=== PATIENT | female | born 1965 | race Caucasian/White ===

== ENCOUNTER 2019-09-13 17:00 | Outpatient (RCR) | payer BC, SELFPAY ==
--- NOTE | 2019-09-16 14:44 | OTOPEVAL ---
Thank you for referring this patient to [facility]. Please review, sign, date and return this plan of care KARI. I agree with and certify that the following plan of care is medically necessary. Referring Physician Date Admitting Provider: Attending Provider: Larry Odonnell MD Referring Provider: *OT Outpatient Evaluation Start: 09/13/19 16:43 Freq: Status: Active Protocol: Document 09/13/19 17:06 [facility] (Rec: 09/13/19 18:06 [facility] [id number]) Therapy Assessment Status Assessment Status Assessment Status Evaluation Outpatient Past Medical History Respiratory History Hx Bronchitis Yes Evaluation Information Problem Diagnosis R thumb pain Onset 07/13/20 Cause R trigger thumb Subjective Information Patient reports that symptoms Query Text:As Reported By Patient/ began ~ 2 months ago and Family started in her R arm. She reports pain, stiffness, swelling, and tingling in her R hand, initiating in all fingers but now pain is primarily is her R thumb. Patient reports that she is unable to open containers, including flipping and twisting open. 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 Patient reports that it is painful to write. Diagnostic Tests X-Rays For This Problem Yes Prior Level of Function Activity Level (Last 3 Months) Hand Dominance Right Activity of Daily Living Ability Independent Indoor/Home Mobility Independent Community Mobility Independent Stairs Ability Independent Functional Cognition (Planning, Shopping Independent , Taking Medications) Cooking Yes Cleaning Yes Laundry Yes Shopping Yes Driving Yes Medications Home Meds (Include: OTC, RX, Vitamins, vitamins Herbals, Dose, Route,and Frequency) Query Text:Home Med Entries Will No Longer Recall From Past Visits. Home Meds Must Be Re-entered With Each Visit. Home Setting Home Type House Living Situation With Minor Child,With Spouse Mobility Assistive Devices (Used Last 3 None Months) Pain Assessment
--- NOTE | 2019-12-10 07:59 | PCOTNOTE ---
Patient is seen for 6 OT sessions and is discharged from skilled OT services as patient does not wish to resume services. Patient reports that she is going back to the . [place]
== END 2019-10-03 11:30 | disposition home or self-care (01) ==
LOC: CHSOT 17:00
PROVIDERS: Visit Provider Orthopaedic Surgery
DX: M65.311 Trigger thumb, right thumb (principal)
CPT/HCPCS: 97035; 97110; 97140; 97165

== ENCOUNTER → 2023-08-04 12:45 | Outpatient (CLI) | payer BC, SELFPAY ==
--- NOTE | ~2023-08-04 | XR_ITS ---
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 TECHNIQUE: AP, lateral, lateral swimmers and odontoid views of the cervical spine are provided. COMPARISON: None FINDINGS: 2 mm anterolisthesis C2 on C3 and C3 on C4, 3 mm anterolisthesis C4 on C5. Mild kyphosis at C4-C5. Od ontoid is intact. Moderate atlantoaxial osteoarthritis. Vertebral body heights are normal. Severe dis c height loss with moderate to severe uncovertebral osteoarthritis and small posterior endplate osteo phytes resulting in mild central canal stenosis at C5-C6 and C6-C7. Mild disc height loss at C4-C5. T here is severe facet osteoarthritis at C2-C3 through C4-C5. Visualized apices of lungs are clear. Pr evertebral soft tissues are normal. IMPRESSION: 1. Severe cervical spondylosis. Reviewed, dictated and finalized at location A. 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
== END ==
PROVIDERS: PCP Chiropractor; Visit Provider Chiropractor
DX: M53.1 Cervicobrachial syndrome (principal); M47.892 Other spondylosis, cervical region
CPT/HCPCS: 72040